=== PATIENT | female | born 1955 | race Caucasian/White ===

== ENCOUNTER → 2016-10-16 | Outpatient (CLI) | payer BC ==
[~2016-10-16] MED LIST: ARIP2TAB8 PO; ASC500 PO; ASPI-781 PO; ATEN-51; CALC-143 PO; CRAN300T PO; DULO20CA43; DULO30CA45 PO; DULO60CA6 PO; IBUP200C PO; POTA2TAB14 PO
--- NOTE | 2016-10-16 22:52 | HKNOTE ---
DATE OF SERVICE: 10/16/2016 The patient comes in for preoperative evaluation, scheduled to have a right total knee replacement o n 10/17/2016. She has been cleared for surgery by Dr. López. She has not given any blood for autotransfusion. She understands the risks associated with using hospital blood. She is agreeable to using hospital blood if needed. Numerous questions were asked and answered. The patient has pr eviously undergone a left knee replacement, had no postoperative complications or problems, and she is fully aware of what is involved with this operation. Dictated By: CORTEZ PINA/NTS Conf#: [id number] DID#: [id number]
== END | disposition home or self-care (01) ==
LOC: HKI 14:20 → MERGE 14:30
DX: Z01.818 Encounter for other preprocedural examination (principal); M25.561 Pain in right knee
CPT/HCPCS: G0463

== ENCOUNTER 2016-10-17 05:55 | Inpatient (IN) | payer BC ==
--- NOTE | 2016-10-14 14:16 | PREOPHP ---
DATE OF ADMISSION: 10/17/2016 The patient to have surgery with Dr. Kojo Garner on 10/17/2016. REASON FOR CONSULTATION: Consultation requested by Dr. Kojo Garner for medical evaluation an d clearance of a 61-year-old woman about to undergo surgery on her right knee. Thank you, Dr. Garner, for allowing us to participate in the care of this patient. HISTORY OF PRESENT ILLNESS: Molly Cummins, a 61-year-old woman, who had prior surgery on her left kne e, currently being admitted for a total knee replacement on the right side. She had a knee replacem ent done on the left side approximately a year or so ago and other than that had had arthroscopic shelby rgery on the left knee and Lasik surgery but other than that has had no major surgeries. PAST MEDICAL HISTORY: She broke her right and left wrist, had Lasik surgery, has had no medical hos pitalizations and has been basically healthy. MEDICATIONS: She currently takes the following medications: 1. Cymbalta 90 mg a day. 2. Atenolol 25 mg a day. 3. Abilify 2 mg a day. ALLERGIES: SHE IS NOT ALLERGIC TO ANY MEDICATIONS. SOCIAL HISTORY: The patient is , has no children. She does not smoke. Alcohol socially. D oes drink tea. Usually has no difficulty sleeping at night. FAMILY HISTORY: Unobtainable, as she is adopted and she knows nothing of her biological family hist ory. REVIEW OF SYSTEMS HEENT: Periodic headaches. CARDIORESPIRATORY: Denies any chest pain or shortness of breath. GASTROINTESTINAL: No melena or hematemesis. GENITOURINARY: No urgency, frequency. GYNECOLOGIC: Postmenopause. Up to date with her development technician. MUSCULOSKELETAL: Positive for right knee pain. NEUROPSYCHIATRIC: Unremarkable. GENERAL HEALTH: As above. PHYSICAL EXAMINATION: VITAL SIGNS: The patient's blood pressure was 112/70, pulse was 80 and regular, respirations were 1 8, temperature 98.2, height 65 inches, weight 170 pounds. GENERAL: The patient was noted to be a well-developed, well-nourished female, alert and cooperative , in no apparent acute distress, oriented to time, place, and person. HEAD, EARS, EYES, NOSE AND THROAT: Head was atraumatic. Eyes: Pupils were equal, reactive to ligh t and accommodation. Fundi were benign. Tympanic membranes were unremarkable. Nose was negative. Mouth was unremarkable. Fair oral hygiene was present. NECK: Supple without any rigidity. Trachea was midline. Thyroid was unremarkable. Neck veins wer e flat. Carotid pulses were equal. No bruits were heard. BACK: Unremarkable. CHEST: Symmetrical. BREASTS AND AXILLARY: Did not reveal any masses. LUNGS: Clear to percussion and auscultation. HEART: PMI is fifth intercostal space at the midclavicular line. Regular sinus rhythm was noted. No significant murmurs, rubs, or gallops being elicited. ABDOMEN: Soft, good bowel sounds were noted. No significant organomegaly, masses, or tenderness. GENITALIA: Normal female external genitalia. PELVIC/RECTAL: Per her development technician. EXTREMITIES: Not revealing clubbing, edema or cyanosis. Scar from prior surgery was noted on the l eft knee. Peripheral pulses were physiologic. SKIN: Moist and warm without any eruptions. No gross lymphadenopathy was noted. NEUROLOGIC: Grossly intact. LABORATORIES: Review of laboratory and other data revealed the following: The patient's chemistry panel including electrolytes, glucose, BUN, creatinine and liver function test, magnesium, iron, th yroid function tests, hemoglobin A1c, CBC, sed rate, UA, PT and PTT were within normal limits. IMAGING: The patient's chest x-ray was normal as well as was her EKG. IMPRESSION: 1. Degenerative joint disease, right knee, status post total knee replacement on the left. 2. Hypertension. 3. Menopausal syndrome. 4. Stable health. DISCUSSION: Dr. Garner, I see no contraindications to the patient undergoing current proposed s urgery under desired form of anesthesia and we will follow her along with you during her stay at [facility]. Thank you again, Dr. Garner, for allowing us to participate in care of this patient. Dictated By: TEENA COATES/LAURA Conf#: [id number] DID#: [id number]
[2016-10-16 17:25] VITALS: BMI 28.3
[2016-10-17] VITALS (18 sets, daily range): BP systolic 99–141; BP diastolic 56–78; PULSE 68–116; RESP 15–28; Ht 165.1 cm; Wt 77.1 kg
[~2016-10-17] VITALS: Ht 165.1 cm; Wt 77.1 kg
[2016-10-17] MEDS: KNEE PAIN COCKTAIL VANCO INJ SCH ×12 (05:00→08:36)
[~2016-10-17 05:55] MED LIST changes: -ASPI-781 PO; -IBUP200C PO; -POTA2TAB14 PO
[2016-10-17] MEDS ORDERED: TRANEXAMIC ACID IVPB ONE (06:00)
[2016-10-17] MEDS ORDERED: DEXAMETHASONE 4 MG/ML 1 ML INJ IV ONE (06:00)
[2016-10-17] MEDS ORDERED: SOD CHLORIDE 0.9% IVPB ONE (06:00)
[2016-10-17] MEDS ORDERED: VANCOMYCIN 1 GM (PMX) 250 ML IVPB ONE (06:00)
[2016-10-17] MEDS ORDERED: CELECOXIB 200 MG CAP PO ONE (06:00)
[2016-10-17] MEDS ORDERED: ONDANSETRON 4 MG INJ IV ONE (06:00)
[2016-10-17] MEDS ORDERED: LACTATED RINGER'S 1,000 ML IV* SCH (06:00)
[2016-10-17] MEDS ORDERED: oxyCODONE (CR) 10 MG TAB [oxyCONTIN] PO ONE (06:00)
[2016-10-17] MEDS ORDERED: ACETAMINOPHEN 1000MG/100ML IV 100 ML IVPB ONE (06:00)
[2016-10-17] MEDS ORDERED: LANSOPRAZOLE 30 MG CAP PO ONE (06:00)
[2016-10-17] MEDS ORDERED: TOBRAMYCIN 1.2 GM POWDER ONE (06:44)
[2016-10-17] MEDS ORDERED: POLYMYXIN B 500000 UNIT INJ ONE (06:44)
[2016-10-17] MEDS ORDERED: BUPIVACAINE 0.5%/EPI (SDV) 30 ML INJ ONE (06:44)
[2016-10-17] MEDS ORDERED: ROPIVACAINE 0.2% 100 ML ONE (06:44)
[2016-10-17] MEDS ORDERED: VANCOMYCIN 1 GM INJ ONE (06:44)
[2016-10-17] MEDS ORDERED: BUPIVACAINE 0.25%/EPI (SDV) 30 ML INJ ONE ×2 (06:44→08:17)
[2016-10-17] MEDS ORDERED: LIDOCAINE 2% (SDV) 5 ML INJ ONE (06:57)
[2016-10-17] MEDS ORDERED: MIDAZOLAM 1 MG/ML 2 ML INJ ONE (06:57)
[2016-10-17] MEDS ORDERED: PROPOFOL 20 ML ONE (06:57)
[2016-10-17] MEDS ORDERED: METHYLENE BLUE 1% 10 ML INJ ONE (06:59)
[2016-10-17] MEDS ORDERED: TRANEXAMIC ACID IRR SCH ×2 (07:00)
[2016-10-17] MEDS ORDERED: SOD CHLORIDE 0.9% IRR SCH ×2 (07:00)
--- NOTE | 2016-10-17 07:34 | HPN ---
Date/Time of Note Date/Time of Note DATE: 10/17/16 TIME: 07:33 Interval H&P Admission Note Pt. seen H&P reviewed: No system changes SHELLI BORJAS PA-C Oct 17, 2016 07:33
[2016-10-17] MEDS ORDERED: hydrALAzine 20 MG INJ ONE (08:11)
[2016-10-17] MEDS ORDERED: FENTAnyl 50 MCG/ML VIAL IV PRN ×2 (11:00)
[2016-10-17] MEDS ORDERED: LABETALOL HCL 20MG INJ IV PRN (11:00)
[2016-10-17] MEDS ORDERED: METOCLOPRAMIDE 10 MG INJ IV PRN (11:00)
[2016-10-17] MEDS ORDERED: MEPERIDINE 25 MG INJ IV PRN (11:00)
[2016-10-17] MEDS ORDERED: DIPHENHYDRAMINE 50 MG INJ IV PRN (11:00)
[2016-10-17] MEDS ORDERED: MIDAZOLAM 1 MG/ML 2 ML INJ IV PRN (11:00)
[2016-10-17] MEDS ORDERED: ONDANSETRON 4 MG INJ IV PRN (11:00)
[2016-10-17] MEDS ORDERED: EPHEDrine SULFATE 50 MG/5 ML SYG IV PRN (11:00)
[2016-10-17] MEDS ORDERED: hydrALAzine 20 MG INJ IV PRN (11:00)
[2016-10-17] MEDS ORDERED: HYDROmorphONE (0.2 MG/ML) 10ML SYG IV PRN ×2 (11:00)
[2016-10-17] MEDS ORDERED: morphine (1 MG/ML) 10ML SYRINGE IV PRN ×2 (11:00)
[2016-10-17] MEDS ORDERED: DOCUSATE SODIUM 100 MG CAP PO ONE (11:30)
[2016-10-17] MEDS ORDERED: HYDROmorphONE 0.2 MG/ML PCA IV PRN (11:30)
[2016-10-17] MEDS ORDERED: BETHANECHOL 25 MG TAB PO PRN (11:30)
[2016-10-17] MEDS ORDERED: ASPIRIN (EC) 325 MG TAB PO ONE (11:30)
[2016-10-17] MEDS ORDERED: BISACODYL 10 MG SUPP PR PRN (11:30)
[2016-10-17] MEDS ORDERED: MAGNESIUM HYDROXIDE 30ML CUP PO PRN (11:30)
[2016-10-17] MEDS ORDERED: SENNA/DOCUSATE NA (8.6MG/50MG) TAB PO PRN (11:30)
[2016-10-17] MEDS ORDERED: MEPERIDINE 10 MG/ML 30 ML PCA IV PRN (11:30)
[2016-10-17] MEDS ORDERED: NALOXONE (0.4 MG/ML) INJ IV PRN (11:30)
[2016-10-17] MEDS ORDERED: COUMADIN NOTE XX SCH (11:30)
[2016-10-17] MEDS ORDERED: NA PHOSPHATE/BIPHOS 133 ML ENEMA PR PRN (11:30)
[2016-10-17] MEDS: ACETAMINOPHEN 1000MG/100ML IV 100 ML IVPB SCH ×2 (11:38→20:08)
[2016-10-17] MEDS: ONDANSETRON 4 MG INJ IV SCH ×3 (11:39→23:40)
[2016-10-17] MEDS: CEFAZOLIN 1 GM/50 ML (PMX) 50 ML IVPB SCH ×2 (11:42→20:37)
--- NOTE | 2016-10-17 11:49 | RADRPT ---
PROCEDURE: XR right knee. CLINICAL INDICATION: Knee pain. TECHNIQUE: AP and lateral views are available for review. COMPARISON: No comparison available FINDINGS: There is a postoperative constrained total knee replacement. There is no evidence of loosening of th e prosthesis. There is no evidence of hardware failure. The osseous structures are normal in mineral ization, architecture and alignment No acute fracture or dislocation is seen.No osseous lesions are identified. There are postoperative soft tissue changes. [address] . IMPRESSION: Unremarkable postoperative constrained total knee replacement. Postoperative soft tissue changes RPTAT: HGDB .Bony Cardona MD, Date Time Electronically viewed and signed by .Bony Cardona MD, MD on 10/17/2016 11:48 .B/
--- NOTE | 2016-10-17 12:36 | OPR ---
DATE OF OPERATION: 10/17/2016 SURGEON: Kojo Garner MD FIELD INVESTIGATOR: JON Su ANESTHESIOLOGIST: Dr. Massey PREOPERATIVE DIAGNOSIS: Exceedingly severe degenerative osteoarthritis of the right knee. POSTOPERATIVE DIAGNOSIS: Exceedingly severe degenerative osteoarthritis of the right knee. OPERATION PERFORMED: Total knee replacement (arthroplasty of the knee, condylar plateau medial and lateral compartments with patella resurfacing, CPT 74379). JUSTIFICATION FOR SURGERY: The knee was found to have end-stage osteoarthritis. The patient is a v sagar active 61-year-old whose lifestyle is markedly affected by the arthritic knee. The patient has previously undergone a left total knee replacement. She is extremely delighted with the results of this surgery, but she is still not able to get around well because of the continuing symptoms in the right knee. An extensive course of conservative care has been tried prior to embarking on the knee replacement operation. There can be no reasonable expectation that any further conservative treatm ent will make any improvement to this patient's pain level and lifestyle. The risks and complicatio ns of the surgery were discussed with the patient at the preoperative visit as well as the risks and possible complications of blood transfusion using [facility] blood. The patient is agreeable to [facility] blood if needed. DESCRIPTION OF PROCEDURE: The patient was given intravenous antibiotics 1 hour prior to surgery. A n epidural anesthetic was initiated in the ICU holding area. The patient was taken to the operating room and given a light general anesthetic. The leg, foot, and ankle were prepared and draped in th e usual sterile fashion. The center of the ankle was marked at the midpoint between the 2 malleoli with a sterile marking pen. A tourniquet around the thigh was inflated to ____ mmHg after the leg h ad been exsanguinated using an Esmarch bandage. The tourniquet was inflated at the initiation of pr ocedure for a short period and was then again reinflated at the time of cementing the components par ts. The total tourniquet time was ____ minutes. A longitudinal incision was made over the anterior aspect of the knee. The incision extended from t he tibial tubercle to a point just above the patella. The medial capsule was exposed by sharp and b satinder dissection, and was incised 1/4 inch medial to the patella. A marking stitch was set on each s shilpi of the incision at the midpoint of the capsule so as to enable accurate reapproximation at the e nd of the operation. A vastus split was made in the vastus medialis extending from the superior lamont e of the patella for approximately 5 cm between the line with the muscle fibers. The ends of the mu scle split at the patella were marked with a marking stitch on each side for later accurate reapprox imation. The patella was reflected laterally and osteophytes around the rim of the patella were rem chiara. Osteophytes along the lateral femoral condyle were removed so as to facilitate lateral reflec tion of the patella. Posteromedial osteophytes were removed on the lateral side as well, so as to f ree up the lateral collateral ligament. Medial femoral osteophytes and posteromedial femoral osteop hytes were also removed at this time. This allowed for the knee to be brought into a more normal al ignment. A segment of bone was cut from the articular surface of the patella using a caliper to det ermine the exact thickness to be removed. The actual patella was extremely thin, measuring 20.5 mm at its widest point on the patellar ridge. I usually like to leave 15 mm of bone on the remaining p atella. We did not use a jig to remove the patellar surface, because it was so thin. Instead, free hand measurement was used by removing small amounts of bone until we were satisfied that we had a s ufficient bed for the patella implant. The remaining thickness of the patella was 13.5 mm. The kne e was flexed, and the patella was displaced laterally without eversion. Osteophytes in the femoral notch were removed. The remnants of the medial and lateral menisci were excised and the cruciate li gaments were excised. The medial collateral ligament was elevated as an osteo-periosteal flap from the proximal tibia. The distal end of the medial collateral ligament remained attached to the tibia throughout the operation. The tibia was retracted forward with Hohmann retractor, inserted posteri or to the midpoint of the proximal tibia. The tibial jig was set in place in such a way as to align longitudinally with the anterior tibial spine, with the junction of the middle and medial 2/3 of th e patella tendon, and with the posterior intercondylar eminence of the tibia. An AP and lateral x-r ay was obtained with the alignment jig in place. This showed that the alignment was satisfactory af ter some slight adjustments were made. The posterior slope of the tibia was set at 6 degrees. The tibial cutting block was attached to the proximal tibia with 2 Steinmann pins. An external alignmen t danielle was placed on the cutting block to confirm the alignment of the cutting block. An Edmundo Wing feeler gauge was now placed on the superior aspect of the cutting block to further confirm the poste rior slope of the tibia and the depth of the cut to be made. An oscillating saw was used to remove an appropriate amount of bone from the proximal tibia with the healthy side being used to measure th e cutting depth. The lateral femoral condyle of the distal femur was measured to determine the appr opriate size for the femoral component. The anterior condyle of the femur was partially removed wit h a rongeur. A medium-sized cutting block was attached to the distal femur with 2 Steinmann pins th rough the pin holes in the block. The external alignment jig of this cutting block was lined up wit h the anterior surface of the femur and a central intercondylar hole for the intramedullary danielle was drilled through the hole in the alignment block. The block was removed. A long Waterpik nozzle was used to flush fat from the intramedullary canal. The appropriately sized cutting block was now att ached to the femur by means of an intramedullary danielle. The linking guide was inserted into the slot in the base of the femoral cutting block with the knee set at 90 degrees of flexion and with the maria dolores jayda guide set flush with the proximal tibial cut in order to set the appropriate rotational alignme nt on the femoral cutting block. Ligament balance was checked at this point and was found to be swetha y satisfactory. Once the rotational alignment had been determined, and the ligaments found to be ba lanced, the femoral cutting block was secured to the distal femur with 2 Steinmann pins. The anteri or and posterior cuts of the distal femur were made off the femoral cutting block. The cutting bloc k was removed and a spacer block was used to measure the flexion gap which was found to be 10 mm. The same spacer block size without the femoral element was used with the leg in extension to determi ne the amount of distal femur to be removed in the transverse plane. A 5-degree distal cutting bloc k was now set on the femoral intramedullary daneille, and the danielle was inserted into the intramedullary ca nal. The appropriate amount of bone to be removed was determined. The femoral cutting block was pi nned to the anterior surface of the femur with 2 Steinmann pins. The appropriate amount of bone was resected off the distal femur to give an extension gap equal to the thickness of the flexion gap. The cut needed to be repeated after initial cut in order to produce an extension gap the same size a s the flexion gap. By using the appropriate cutting blocks, the rest of the femoral cuts were made. The femoral trial component was installed and was found to fit perfectly. The femoral trial component was removed. T he proximal tibia was sized, and the appropriate tibial tray selected. The central fixation hole in the tibia was made using the tibial tray template and the appropriate instruments. The femoral and tibial trials and the trial tibial insert were installed, and the patella was prepared to accept th e 32-sized patella dome component, which was the smallest available, but adequately covered the adams lla. The trial components were all removed. The tourniquet was inflated. Soft tissues around the knee, especially the posterior capsule, were injected with a mixture of Naropin, Toradol, morphine, and clonidine. The cut surfaces of the bones were cleaned with pulsatile Water Jet lavage and thoro ughly dried. Sclerotic bone surfaces were drilled with a 1/8-inch drill. The tibial trial componen t was installed with methyl methacrylate cement followed by the femoral component and finally the pa tellar component. Cement was used on all 3 components. The cement was finger packed into the cut s urfaces of the bone and pressurized with a rubber dam in order to get good interdigitation of the ce ment into the bone. A lateral x-ray of the knee was obtained while the cement was hardening with th e anticipated appropriate spacer trial in place. Once the cement was hard, all extraneous cement wa s removed. The cut edges of the medial capsule were held together at the midpoint with a towel clip , and the knee was put through a full range of motion. The patella was found to track satisfactoril y. A lateral release was obtained with the anticipated ____ obtained with a 10 mm spacer trial in p lace. Note that the patient had a fixed ____ deformity of 8 degrees before the knee was prepped and draped. At this point, the patella was found to track very well in the patellar groove of the femo ral component. A lateral release was not required. The knee was frequently irrigated with normal saline containing antibiotics with pulsatile lavage th roughout the entire operation as a prophylactic measure against infection. Once the cement was hard , the tourniquet was released. Bleeding points were cauterized. The total tourniquet time was ___. Note that the tourniquet was intermittently released throughout the operation. The patient's rena l signs remained stable throughout the operation. The permanent rotating bearing was installed. Superficial and deep Hemovac drains were set in place . The wound was closed using interrupted Vicryl on the capsule with FiberWire used at strategic poi nts such as the attachment of the distal ends of the vastus medialis at the split, and the tibial te ndon was also attached to the osteo-periosteal flap with FiberWire. The rest of the medial capsule was closed with interrupted Vicryl. A subcuticular stitch was inserted and angelo were used on the skin. The usual sterile dressings were applied. A Marcus-Fuentes compression dressing was applied a fter a sterile cooling pad had been set in place against the deep tissues by sterile cast padding. The patient's condition at the end of the procedure was satisfactory. Vital signs remained stable t hroughout the operation. The patient returned to the recovery room in stable condition. X-rays wer e obtained in the recovery room. Calf pumps were applied to both legs in the operating room. There were no problems or complications as far as we know. The sponge and instrument counts were correct . COMPONENT INFORMATION: KNEE IMPLANT TYPE: LCS. FEMORAL COMPONENT SIZE: Standard. TIBIAL COMPONENT SIZE: 1.5 PATELLAR COMPONENT SIZE: ____ TIBIAL INSERT: 10 mm deep dish posterior stabilized. 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 TOTAL TOURNIQUET TIME: ____ TOTAL BLOOD LOSS: Approximately 200 to 250 mmHg. Note that there was fairly extensive bleeding throughout the operation, even with the tourniquet fransisco vated. We progressively increased the tourniquet from 225 mm to 300 mm to see if we could decrease the bleeding and when we could not, we assumed that there might be a venous tourniquet and so we fin ally released the tourniquet completely and worked without a tourniquet most of the time except for when cementing the implant components. As a result, there was more bleeding than usual during the o peration. Dictated By: KOJO PINA/LAURA Conf#: [id number] DID#: [id number]
--- NOTE | 2016-10-17 13:34 | RADRPT ---
PROCEDURE: Intraoperative imaging of the right knee with fluoroscopy. CLINICAL INDICATION: Right knee pain. Intraoperative. TECHNIQUE: 2 images of the right knee were obtained in the operating room with an image intensifie r. No radiologist was in attendance. 11.2 seconds of fluoroscopy time was used. COMPARISON: No prior study is available for comparison. FINDINGS: Images demonstrate components of the knee arthroplasty. IMPRESSION: 1. Intraoperative imaging of the right knee. RPTAT: QQ .Steve Montana MD, MD Date Time Electronically viewed and signed by .Steve Montana MD, MD on 10/17/2016 13:33 .R/
--- NOTE | 2016-10-17 13:37 | RADRPT ---
PROCEDURE: Right knee radiograph. CLINICAL INDICATION: Right knee pain. Intraoperative. TECHNIQUE: Single lateral intraoperative image. COMPARISON: Prior study done earlier the same day. FINDINGS: There are components of a total right knee arthroplasty. IMPRESSION: 1. Satisfactory intraoperative imaging of the right knee. RPTAT: QQ .Steve Montana MD, Date Time Electronically viewed and signed by .Steve Montana MD, on 10/17/2016 13:37 .R/
--- NOTE | 2016-10-17 13:39 | CONS ---
DATE OF ADMISSION: 10/17/2016 DATE OF CONSULTATION: 10/17/2016 POSTOPERATIVE CONSULTATION FOLLOWUP The patient had surgery with Dr. Kojo Garner on 10/17/2016. HISTORY OF PRESENT ILLNESS: The patient was seen in the recovery room, quite alert, responding to q uestions, doing quite nicely. No particular complaints. PHYSICAL EXAMINATION: VITAL SIGNS: The patient was afebrile earlier. Pulse was 96, respirations 20, blood pressure 123/70 , O2 98% on nasal cannula. HEENT: Unremarkable. LUNGS: Clear. HEART: Revealed a regular exam. Rest of the exam was unremarkable. IMPRESSION: 1. Status post total knee replacement on the right side. 2. Hypertension. 3. Stable health. DISCUSSION: Plan is to continue the patient's preoperative medicine, follow her along with you from a medical standpoint. CONDITION: Postoperatively in the recovery room is stable. Thank you again, Dr. Garner, for allowing us to participate in the care of this patient. Dictated By: TEENA COATES/LAURA Conf#: [id number] DID#: [id number]
[2016-10-17] MEDS ORDERED: [UNRECOGNIZED DRUG - REMARK] XX SCH (14:00)
[2016-10-17] MEDS ORDERED: TRANEXAMIC ACID 770 MG in SOD CHLORIDE 0.9% 100 ML IVPB ONE ×2 (15:00→18:00)
[2016-10-17] MEDS: DEXTROSE 5%-LR 1,000 ML IV SCH ×2 (15:02→23:31)
[2016-10-17] MEDS ORDERED: ZOLPIDEM 5 MG TAB PO PRN (16:00)
[2016-10-17] MEDS ORDERED: DIPHENHYDRAMINE 50 MG INJ IM PRN (16:00)
[2016-10-17] MEDS ORDERED: DULOXETINE 30 MG CAP DR PO SCH (19:00)
[2016-10-18] MEDS: ACETAMINOPHEN 1000MG/100ML IV 100 ML IVPB SCH ×3 (04:08→20:10)
[2016-10-18] MEDS: CEFAZOLIN 1 GM/50 ML (PMX) 50 ML IVPB SCH (04:46)
[2016-10-18 04:54] LABS: ADD SCAN DIFF NO
[2016-10-18 05:02] LABS: BASOPHILS % 0.2 % (0.0-2.0); HEMATOCRIT 35.5 % (37.0-47.0); HEMOGLOBIN 11.4 g/dl (12.0-16.0); LYMPHOCYTES # 1.8 10^3/ul (0.8-2.9); LYMPHOCYTES % 9.9 % (15.0-51.0); MEAN CORPUSCULAR HEMOGLOBIN 28.1 pg (29.0-33.0); MEAN CORPUSCULAR HGB CONC 32.1 g/dl (32.0-37.0); MEAN CORPUSCULAR VOLUME 87.4 fl (82.0-101.0); MEAN PLATELET VOLUME 10.5 fl (7.4-10.4); MONOCYTE # 1.2 10^3/ul (0.3-0.9); MONOCYTES % 6.9 % (0.0-11.0); NEUTROPHIL # 14.6 10^3/ul (1.6-7.5); NEUTROPHILS % 82.3 % (39.0-77.0); PLATELET COUNT 252 10^3/UL (140-415); RED BLOOD COUNT 4.06 10^6/ul (4.20-5.40); RED CELL DISTRIBUTION WIDTH 14.7 % (11.5-14.5); WHITE BLOOD COUNT 17.7 10^3/ul (4.8-10.8)
[2016-10-18] MEDS ORDERED: KETOROLAC 15 MG INJ INJ PRN (06:00)
[2016-10-18] MEDS ORDERED: BUPIVACAINE 0.25%/EPI (SDV) 30 ML INJ INJ PRN (06:00)
[2016-10-18] MEDS: ONDANSETRON 4 MG INJ IV SCH (06:06)
[2016-10-18] MEDS: DEXAMETHASONE 4 MG/ML 1 ML INJ IV SCH (06:29)
[2016-10-18 07:22] VITALS: BP 112/58; RESP 20
--- NOTE | 2016-10-18 08:09 | PN ---
Date/Time of Note Date/Time of Note DATE: 10/18/16 TIME: 08:05 Assessment/Plan VTE Prophylaxis VTE Prophylaxis Intervention: ambulation, anti-embolic stocking, SCD's, other ( Aspirin 325 mg twice daily) Lines/Catheters IV Catheter Type (from Nrs): Peripheral IV Garcia in Place (from Nrs): Yes Assessment/Plan Assessment/Plan -Hemovac Removed Today. 280 cc output. -Pain Cocktail Given -Pain Meds as needed -Dress change performed today -OOB with PT -ASA/SCDs for DVT Prophylaxis -White blood cell count at 17.7. Vanco ordered. Wound site is clean dry and intact no signs of infection. Normal temperature 97.6. -Continue monitoring with Internal Medicine -Patient Stable Subjective 24 Hr Interval Summary 61-year-old female postop day 1 status post right total knee arthroplasty. Denies any pain complaints. Patient had physical therapy on the day of surgery. Was able to walk down the hallway and back without any complications. Denies any chest pain/tightness, shortness of breath or calf pain. Patient doing well with no complaints. Constitutional: no complaints Pain Control: well controlled Exam/Review of Systems Vital Signs Vitals Vital Signs Date Time Temp Pulse Resp B/P Pulse Ox O2 Delivery O2 Flow Rate FiO2 10/17/16 20:00 97.6 102 18 100/62 95 10/17/16 12:30 Nasal Cannula 10/17/16 11:59 2.0 Intake and Output 10/17/16 10/17/16 10/18/16 15:00 23:00 07:00 Intake Total 2420 ml 1217.7 ml 1950 ml Output Total 1530 ml 1600 ml 1800 ml Balance 890 ml -382.3 ml 150 ml Exam Free Text/Dictation -Hemovac: Intact. 280 cc output. -Pain Cocktail Drains: Intact -Incision: Clean, Dry and Intact without any redness or drainage -5/5 Tibialis Anterior, EHL Gastrocnemius/Soleus and Peroneals -Normal Sensation -Palpable DP/PT, Capillary Refill <2 secs -No Distal Edema -Negative Padmini Sign/No calf pain -Toes Freely Movable Constitutional: alert, oriented, well developed Results Result Diagram: 10/18/16 0435 SHELLI BORJAS PA-C Oct 18, 2016 08:09
--- NOTE | 2016-10-18 08:11 | PDOCDIS ---
Discharge Instructions DIAGNOSIS Discharge Diagnosis: Status post right total knee arthroplasty. CONDITION Patient Condition: Stable HOME CARE INSTRUCTIONS: Diet Instructions: Regular ACTIVITY: Activity Restrictions: Slowly Increase Activity Rest between Activity Avoid heavy lifting No Sexual Activity Do not Drive (For 6 weeks) Do not operate Machinery Do not operate Power Tool Avoid Heavy Housework Weight Bearing (As tolerated. May use front wheeled walker if needed. Gradually progress to independent ambulation once comfortable.) Bathing Restrictions: Shower (Using Tegaderm provided on discharge. Apply prior to showering. May remove after showering. Repeat each day until angelo are removed around 10 days.) FOLLOW UP/APPOINTMENTS Appointments 11/07/2016. Continue DVT prophylaxis. SHELLI BORJAS PA-C Oct 18, 2016 08:11
[2016-10-18 08:17] VITALS: BP 139/61; RESP 20
[2016-10-18 08:25] LABS: ADD UMIC YES; URINE BILIRUBIN (Dip) NEGATIVE (NEGATIVE); URINE BLOOD (Dip) TRACE (NEGATIVE); URINE COLOR LT. YELLOW (YELLOW); URINE KETONES (Dip) NEGATIVE (NEGATIVE); URINE LEUKOCYTE ESTERASE (Dip) NEGATIVE (NEGATIVE); URINE NITRITE (Dip) NEGATIVE (NEGATIVE); URINE TOTAL PROTEIN (Dip) NEGATIVE (NEGATIVE); URINE UROBILINOGEN (Dip) 0.2 E.U./dL (0.1-1.0)
[2016-10-18] MEDS ORDERED: VANCOMYCIN IV PER PHARMACY XX SCH (08:30)
[2016-10-18] MEDS: FERROUS FUMARATE (SR) TAB PO SCH ×2 (08:53→20:10)
[2016-10-18] MEDS: ASCORBIC ACID 500 MG TAB PO SCH (08:53)
[2016-10-18] MEDS: DOCUSATE SODIUM 100 MG CAP PO SCH ×2 (08:53→20:10)
[2016-10-18] MEDS: ASPIRIN (EC) 325 MG TAB PO SCH ×2 (08:53→20:10)
[2016-10-18] MEDS: ATENOLOL 25 MG TAB PO SCH (08:54)
[2016-10-18] MEDS: CELECOXIB 200 MG CAP PO SCH ×2 (08:54→20:10)
[2016-10-18] MEDS: CALCIUM/VITAMIN D (500/200) TAB PO SCH (08:54)
[2016-10-18] MEDS: DULOXETINE 30 MG CAP DR PO SCH (09:00)
[2016-10-18] MEDS ORDERED: oxyCODONE 5 MG TAB PO PRN ×3 (09:00)
[2016-10-18] MEDS: ARIPIPRAZOLE 2 MG TAB PO SCH (09:00)
[2016-10-18] MEDS ORDERED: PATIENT'S OWN MEDICATION PO SCH ×2 (09:00)
[2016-10-18] MEDS ORDERED: DULOXETINE 30 MG CAP DR PO SCH (09:00)
[2016-10-18] MEDS ORDERED: CRANBERRY EXTRACT PO SCH (09:00)
[2016-10-18 09:03] LABS: BACTERIA,URINE RARE; URINE RBCS 0-2 /HPF (0)
[2016-10-18] MEDS ORDERED: VANCOMYCIN 1.5 GM in SOD CHLORIDE 0.9% 250 ML IVPB SCH (10:00)
[2016-10-18] MEDS ORDERED: PATIENT'S OWN MEDICATION PO ONE ×2 (10:00)
--- NOTE | 2016-10-18 10:46 | CONS ---
DATE OF ADMISSION: 10/17/2016 DATE OF CONSULTATION: 10/18/2016 POSTOPERATIVE CONSULT FOLLOWUP SUBJECTIVE: The patient is quite alert, sitting up in bed, feeling well without any specific compla ints. OBJECTIVE: VITAL SIGNS: Blood pressure 139/61, pulse 91 and regular, respirations 20, temperature 97.7, O2 sat uration 95% on room air. HEENT: Unremarkable. LUNGS: Clear. HEART: Reveals a regular rhythm. IMPRESSION: 1. Status post total knee replacement on the right. 2. Hypertension. 3. Stable health. DISCUSSION: Review of laboratory and other data revealed the following: The patient's CBC reveals A white count of 17.7 compatible with steroid use. No other laboratories available at this particul ar point in time. Plan is to continue following the patient. Her preop medicines were ordered. The patient chooses t o take some of her own medications because they are not generic, it has been approved. Management per Dr. Garner. Thank you again, Dr. Garner, for allowing us to participate in the care of your patient. Dictated By: TEENA COATES/LAURA Conf#: [id number] DID#: [id number]
[2016-10-18] MEDS: DEXTROSE 5%-LR 1,000 ML IV SCH (12:13)
[2016-10-18 19:00] VITALS: BP 131/69; RESP 18
[2016-10-18] MEDS: VANCOMYCIN 750 MG in SOD CHLORIDE 0.9% 150 ML IVPB SCH (22:15)
[2016-10-19] MEDS: DEXTROSE 5%-LR 1,000 ML IV SCH ×2 (00:31→13:01)
[2016-10-19] MEDS: ACETAMINOPHEN 1000MG/100ML IV 100 ML IVPB SCH (04:30)
[2016-10-19 05:11] LABS: ADD SCAN DIFF NO
[2016-10-19 05:26] LABS: BASOPHIL # 0.1 10^3/ul (0.0-0.1); BASOPHILS % 0.9 % (0.0-2.0); EOSINOPHILS # 0.1 10^3/ul (0.0-0.5); EOSINOPHILS % 1.2 % (0.0-7.0); HEMATOCRIT 32.8 % (37.0-47.0); HEMOGLOBIN 10.7 g/dl (12.0-16.0); LYMPHOCYTES # 2.9 10^3/ul (0.8-2.9); MEAN CORPUSCULAR HEMOGLOBIN 28.5 pg (29.0-33.0); MEAN CORPUSCULAR HGB CONC 32.6 g/dl (32.0-37.0); MEAN CORPUSCULAR VOLUME 87.2 fl (82.0-101.0); MEAN PLATELET VOLUME 10.6 fl (7.4-10.4); MONOCYTE # 0.9 10^3/ul (0.3-0.9); MONOCYTES % 8.3 % (0.0-11.0); NEUTROPHIL # 7.1 10^3/ul (1.6-7.5); NEUTROPHILS % 63.1 % (39.0-77.0); PLATELET COUNT 253 10^3/UL (140-415); RED BLOOD COUNT 3.76 10^6/ul (4.20-5.40); RED CELL DISTRIBUTION WIDTH 14.7 % (11.5-14.5); WHITE BLOOD COUNT 11.2 10^3/ul (4.8-10.8)
[2016-10-19] MEDS: DEXAMETHASONE 4 MG/ML 1 ML INJ IV SCH (05:55)
[2016-10-19] MEDS ORDERED: PANTOPRAZOLE (EC) 40 MG TAB PO SCH (06:00)
[2016-10-19 07:57] VITALS: BP 123/69; RESP 16
[2016-10-19] MEDS: ARIPIPRAZOLE 2 MG TAB PO SCH (09:00)
[2016-10-19] MEDS: DULOXETINE 30 MG CAP DR PO SCH (09:00)
[2016-10-19] MEDS: ASPIRIN (EC) 325 MG TAB PO SCH (10:10)
[2016-10-19] MEDS: DOCUSATE SODIUM 100 MG CAP PO SCH (10:10)
[2016-10-19] MEDS: ASCORBIC ACID 500 MG TAB PO SCH (10:10)
[2016-10-19] MEDS: CELECOXIB 200 MG CAP PO SCH (10:10)
[2016-10-19] MEDS: CALCIUM/VITAMIN D (500/200) TAB PO SCH (10:10)
[2016-10-19] MEDS: FERROUS FUMARATE (SR) TAB PO SCH (10:11)
[2016-10-19] MEDS: ATENOLOL 25 MG TAB PO SCH (10:12)
[2016-10-19] MEDS: VANCOMYCIN 750 MG in SOD CHLORIDE 0.9% 150 ML IVPB SCH (10:14)
--- NOTE | 2016-10-19 10:38 | PN ---
Date/Time of Note Date/Time of Note DATE: 10/19/16 TIME: 10:36 Assessment/Plan Lines/Catheters IV Catheter Type (from Nrsg): Saline Lock Garcia in Place (from Nrsg): Yes Assessment/Plan Assessment/Plan POD #2, s/p right TKA -pain cocktail given -dressing changed -pain cocktail removed -OOB with PT -pain meds as needed -would like to go home today. -follow up with Dr. Garner in the office as planned Subjective 24 Hr Interval Summary No acute overnight events. Denies pain. Progressing with PT. Dressing changed today. VSS, afebrile despite elevated WBC. Wants to go home today. Exam/Review of Systems Vital Signs Vitals Vital Signs Date Time Temp Pulse Resp B/P Pulse Ox O2 Delivery O2 Flow Rate FiO2 10/19/16 07:57 98.0 75 16 123/69 99 10/17/16 12:30 Nasal Cannula 10/17/16 11:59 2.0 Intake and Output 10/18/16 10/18/16 10/19/16 15:00 23:00 07:00 Intake Total 350 ml 1580 ml 1050 ml Output Total 1000 ml 1100 ml Balance 350 ml 580 ml -50 ml Exam Free Text/Dictation Dressing dry Incision clean, dry, and intact mild ecchymosis with no signs of erythema or cellulitis 5/5 Quadriceps, Tibialis Anterior, EHL, Gastroc, Soleus, Peroneals Normal sensation Palpable DT/PT, CR <2 sec No distal edema Results Result Diagram: 10/19/16 0446 10/18/16 0435 DICKSON MONZON PA-C Oct 19, 2016 10:38
--- NOTE | 2016-10-21 08:06 | DS ---
Date/Time of Note Date/Time of Note DATE: 10/21/16 TIME: 08:01 Discharge Summary Admission/Discharge Info Admit Date/Time Oct 17, 2016 at 05:55 Discharge Date/Time Oct 19, 2016 at 14:10 Final Diagnosis s/p Right TKA Patient Condition: Stable Hospital Course On the day of admission, the patient underwent right total knee arthroplasty Intraoperative complications: None Postoperative complications: None The patient was given prophylactic antibiotics and anticoagulants. On the day of surgery and first postoperative day patient was started on gait training and was taught usual restrictions following knee replacement Suction drain removed on the first postoperative day and the dressings were changed. The wound was found to be clean and healing well. There was no sign of infection. Pain cocktail given. Had elevated white blood cell count and therefore IV Vanco given for infection prophylaxis. On the second postoperative day, patient continued with inpatient PT. Dressings were changed. Wound was found to be clean and healing well. No signs of infection. Pain cocktail given. On the day of discharge, the wound was clean and healing well; there was no sign of infection. The dressings were changed. White blood cell count continued to trend downward. Discharge Temperature: 98 Discharge White Blood Cell Count: 11.2 Discharge Hemoglobin: 10.7 The patient was discharged home with home health. Arrangements were made for visiting nurses and home health/physical therapy. Tegaderm with pad also provided for patient. Instructions given on how to use to keep wound dry while showering. Patient may discontinue use of Tegaderm with pad after angelo have been removed around 10 days postoperatively. The patient will be seen in office at scheduled postoperative evaluation date given on their preoperative exam. Should patient complain of any problems prior to scheduled postoperative evaluation date, they may call into outpatient clinic to determine if they need to be scheduled at sooner appointment to be seen immediately if needed. Discharge medications: As per medication reconciliation form Diet: Same as preadmission diet. This is Shelli Pinzon PA-C dictating discharge summary for Dr. Kojo Garner. Home Meds Reported Medications Aripiprazole* (Abilify*) 2 Mg Tablet, 2 MG PO DAILY, #30 TAB 10/16/16 Duloxetine Hcl* (Cymbalta*) 60 Mg Capsule., 160 MG PO DAILY, CAP 10/16/16 Duloxetine Hcl* (Cymbalta*) 30 Mg Capsule., 30 MG PO DAILY, CAP 10/16/16 Cranberry Extract (Cranberry Concentrate) 300 Mg Tablet, 3600 MG PO DAILY, TAB 09/05/15 Calcium Citrate/Vitamin D (Citracal-Vitamin D 200 MG-250) 1 Each Tablet, 1 EACH PO DAILY, TAB 09/05/15 Ascorbic Acid (Vitamin C) 500 Mg Tab, 500 MG PO DAILY, TAB 09/05/15 Atenolol* (Atenolol*) 25 Mg Tablet, DAILY 09/05/15 Discontinued Reported Medications Duloxetine Hcl* (Cymbalta*) 20 Mg Capsule.dr, DAILY 09/05/15 Potassium Gluconate (Potassium Gluconate) 500 Mg Tablet, 500 MG PO DAILY, TAB 09/05/15 Ibuprofen* (Ibuprofen*) 200 Mg Capsule, 200 MG PO Q6, CAP 09/05/15 Discontinued Scripts Aspirin* (Ecotrin*) 325 Mg Tabec, 325 MG PO BID for 45 Days Prov:MARCIE HOANG 09/06/15 Follow-up Plan At scheduled postop visit 3 weeks status post surgery. SHELLI BORJAS PA-C Oct 21, 2016 08:06
== END 2016-10-19 14:10 | disposition home health service (06) | DRG 470 ==
LOC: REC 05:55 → MS1 12:30
PROC: 0SRC0J9 Replacement of Right Knee Joint with Synthetic Substitute, Cemented, Open Approach (ICD-10-PCS; principal; 2016-10-17 07:00)
DX: M17.11 Unilateral primary osteoarthritis, right knee (principal); I10 Essential (primary) hypertension; D72.829 Elevated white blood cell count, unspecified; N95.1 Menopausal and female climacteric states; Z96.652 Presence of left artificial knee joint
CPT/HCPCS: 73560; 81001; 81003; 82565; 85025; 86850; 86900; 86901; 86920; 87086; 97116; 97163; 97166; 97530; C1776; J0131; J0360; J0690; J0735; J1100; J1885; J2250; J2274; J2405; J2795; J3370; J7050; J7120; J7121

== ENCOUNTER → 2016-10-31 | Outpatient (CLI) | payer BC ==
[~2016-10-31] MED LIST changes: -DULO20CA43
--- NOTE | 2016-10-31 16:05 | PN ---
Date/Time of Note Date/Time of Note DATE: 10/31/16 TIME: 16:02 Outpatient Progress Note Chief Complaint 2 weeks postop right total knee arthroplasty. HPI 61-year-old female presents today for two-week postoperative appointment status post right total knee arthroplasty performed on 10/17/2016. Patient is very pleased status post surgery. Denies any pain complaints to the right knee. Patient states that after 2-3 days from discharge, she was no longer using any assisted ambulatory device. Continues to walk independently without discomfort. Denies any calf pain, chest pain/tightness, shortness of breath. [place] remain intact and presents today for staple removal as well. Review of Systems Const: No Fever, no chills, no Fatigue, normal appetite, no diaphoresis. Resp: No SOB, no wheezing, no chest pain. CV: No chest pain, no palpitaions, no BRADY. Physical Exam Height 5 foot 5 inches, weight 170 pounds Right knee: [place] are intact. Wound is clean dry and intact and well approximated. No tenderness to palpation to the right knee. Mild swelling on inspection. Patient able to fully extend the right knee actively with about 100 active flexion on exam today. No pain with range of motion. Negative Homans sign. 5/5 strength on resistance with flexion and extension. Normal sensory examination to light touch. Allergies Coded Allergies: No Known Drug Allergy (Verified Allergy, Unknown, 10/17/16) Assessment/Plan -Staple removal performed today. Steri-Strips applied after staple removal. -Wound healing well. No signs of infection. -Continue ASA 325 mg twice daily for DVT prophylaxis until 6 weeks status post surgery. -No signs of DVT. -Patient progressing well. -Follow-up at 6 week postop appointment. X-rays will be performed at 6 weeks postoperative appointment. -Patient made aware that they may follow-up sooner, should they experience any issues or complications as we will be glad to see them. -Order for outpatient physical therapy given today with focus on improved range of motion. Dr. Garner has also seen patient today and agrees with plan. Medications Home Meds Reported Medications Aripiprazole* (Abilify*) 2 Mg Tablet, 2 MG PO DAILY, #30 TAB 10/16/16 Duloxetine Hcl* (Cymbalta*) 60 Mg Capsule., 160 MG PO DAILY, CAP 10/16/16 Duloxetine Hcl* (Cymbalta*) 30 Mg Capsule.dr, 30 MG PO DAILY, CAP 10/16/16 Cranberry Extract (Cranberry Concentrate) 300 Mg Tablet, 3600 MG PO DAILY, TAB 09/05/15 Calcium Citrate/Vitamin D (Citracal-Vitamin D 200 MG-250) 1 Each Tablet, 1 EACH PO DAILY, TAB 09/05/15 Ascorbic Acid (Vitamin C) 500 Mg Tab, 500 MG PO DAILY, TAB 09/05/15 Atenolol* (Atenolol*) 25 Mg Tablet, DAILY 09/05/15 SHELLI BORJAS PA-C Oct 31, 2016 16:05
--- NOTE | 2016-11-06 09:33 | QN ---
Documentation Comment Patient called today requesting refill of [place] 10/325. was provided with #90 tablets on preop visit. She is 3 weeks post-op TKA and has run out of medications. Patient made aware that she may be using opiate medication at increased amount as she has finished 90 tab in 3 weeks. She was last seen on with no pain complaints. She is however, very responsible and there is no suspicion on non-compliant behavior. 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 SHELLI BORJAS PA-C Nov 06, 2016 09:33
== END | disposition home or self-care (01) ==
LOC: HKI 15:29
DX: Z47.1 Aftercare following joint replacement surgery (principal); Z96.651 Presence of right artificial knee joint

== ENCOUNTER → 2016-11-19 | Outpatient (CLI) | payer BC ==
--- NOTE | 2016-11-19 15:46 | PN ---
Date/Time of Note Date/Time of Note DATE: 11/19/16 TIME: 15:42 Outpatient Progress Note Chief Complaint Wound check 5 week postop right total knee replacement. HPI 61-year-old female presents today for wound check, specifically to the inferior region of the surgical wound to the right knee status post surgery. She is about 5 weeks postop. Denies any pain complaints. Patient is back to walking independently and normally. Denies any fever, chills or malaise. Denies any falls or injury status post surgery. Patient states that there is small region to the inferior wound that continues to heal and has noticed clear to white drainage of variable small amounts only when she is able to apply pressure to ooze fluid. She denies any redness surrounding the wound. Denies any other symptoms. Presents with today. Review of Systems Const: No Fever, no chills, no Wt. loss, no Fatigue, normal appetite, no diaphoresis. Eyes: No pain, no discharge, no redness, no visual change, no foreign body. ENT: No pain, no bleeding, no congestion, no sore throat, no dysphagia, no discharge or rhinitis. Const: No Fever, no chills, no Fatigue, normal appetite, no diaphoresis. Resp: No SOB, no wheezing, no chest pain. CV: No chest pain, no palpitaions, no BRADY. Physical Exam General Appearance: well-developed, well-nourished, in no acute distress. Right knee: Surgical wound healing well. Small region where the wound is open about 3-4 mm. With significant pressure there is small amount of clear drainage able to be extruded. Culture sample taken. No tenderness to palpation to the right knee. Patient is able to flex up to 115 today. Full extension today. No pain complaints. Allergies Coded Allergies: No Known Drug Allergy (Verified Allergy, Unknown, 10/17/16) Assessment/Plan * Wound culture obtained and sent to lab. * Keflex 500 mg 1 tab p.o. 3 times daily 7 days #21 tablets called into pharmacy. Patient may begin taking antibiotics immediately for infection prophylaxis. * Patient will follow up in 1 week for scheduled 6 week postop appointment. X- rays on follow-up. Should there be any concern especially with culture obtained today, patient will be notified sooner. * Follow-up next week for 6 week appointment and repeat wound check. Patient may apply thin film of Neosporin, after area has been cleaned and properly dried , with Band-Aid applied over Neosporin. Patient may follow-up sooner should there be any complication or issue. Medications Home Meds Reported Medications Aripiprazole* (Abilify*) 2 Mg Tablet, 2 MG PO DAILY, #30 TAB 10/16/16 Duloxetine Hcl* (Cymbalta*) 60 Mg Capsule.dr, 160 MG PO DAILY, CAP 10/16/16 Duloxetine Hcl* (Cymbalta*) 30 Mg Capsule.dr, 30 MG PO DAILY, CAP 10/16/16 Cranberry Extract (Cranberry Concentrate) 300 Mg Tablet, 3600 MG PO DAILY, TAB 09/05/15 Calcium Citrate/Vitamin D (Citracal-Vitamin D 200 MG-250) 1 Each Tablet, 1 EACH PO DAILY, TAB 09/05/15 Ascorbic Acid (Vitamin C) 500 Mg Tab, 500 MG PO DAILY, TAB 09/05/15 Atenolol* (Atenolol*) 25 Mg Tablet, DAILY 09/05/15 SHELLI BORJAS PA-C November 19, 2016 15:46
== END | disposition home or self-care (01) ==
LOC: HKI 15:17
DX: Z47.1 Aftercare following joint replacement surgery (principal); Z96.651 Presence of right artificial knee joint

== ENCOUNTER → 2016-11-21 | Outpatient (CLI) | payer BC ==
--- NOTE | 2016-11-22 03:51 | HKNOTE ---
DATE OF SERVICE: 11/21/2016 The patient is now 3 weeks out following total knee replacement. She has no pain in the knee. She has an excellent range of motion but there is a small, almost invisible, sinus in the junction of th e middle and distal thirds where there is drainage of what appears to be clear water coming from her knee. Cultures obtained on her on knee on 11/19/2016 are reported as showing pending culture for aerobic ba cteria. No organisms seen on Gram stain. PHYSICAL EXAMINATION: Patient's temperature is 98.5. It is fairly easy to express clear fluid from the knee. MANAGEMENT: A new culture is obtained today. I wanted to apply a wound VAC but none is available i n the office. The patient will have to come back tomorrow so we can put the wound VAC on the knee. She is currently on antibiotics. Dictated By: CORTEZ PINA/LAURA Conf#: [id number] DID#: [id number]
== END | disposition home or self-care (01) ==
LOC: HKI 13:40
DX: Z47.1 Aftercare following joint replacement surgery (principal); Z96.651 Presence of right artificial knee joint

== ENCOUNTER → 2016-11-26 | Outpatient (CLI) | payer BC ==
--- NOTE | 2016-11-26 15:30 | PN ---
Date/Time of Note Date/Time of Note DATE: 11/26/16 TIME: 15:24 Outpatient Progress Note Chief Complaint 6 week postop appointment for right total knee replacement HPI 61-year-old female presents today for 6 week postop appointment status post right total knee arthroplasty performed on 10/17/2016. Patient denies any pain complaints. Patient was seen about 4-5 days ago due to small opening of the skin to the inferior surgical wound. Since she was last seen, eschar has formed. There is no drainage. No pain complaints. Does have complaints of numbness along the lateral side of incision. Patient is walking normally and independently without assisted ambulatory device. No pain on ambulation. She states that she is returned to normal function of the knee. Review of Systems Const: No Fever, no chills, no Fatigue, normal appetite, no diaphoresis. Resp: No SOB, no wheezing, no chest pain. CV: No chest pain, no palpitaions, no BRADY. Physical Exam 123/82 as the blood pressure, temperature is 98.5, pulse is 79, respiratory rate is 12, height is 5 feet 5 inches, weight is 170 pounds. General Appearance: well-developed, well-nourished, in no acute distress. Right knee: Eschar formed over inferior surgical wound. No drainage. Surgical wound healing well. Numbness to light touch along the lateral side of surgical wound of the right knee. No tenderness to palpation. Patient has full range of motion on flexion and extension. 5/5 strength on resistance. No calf pain. Imaging X-ray of the right knee performed on 11/26/2016 showing all components appearing well aligned, attached and integrated to the bone. No signs of any lucency between metal and bone. Allergies Coded Allergies: No Known Drug Allergy (Verified Allergy, Unknown, 10/17/16) Assessment/Plan -Patient progressing well -Surgical wound continues to heal well. -No signs of infection or DVT on exam. -X-rays showing no abnormalities in regards to prosthesis attachment to bone. -Range of motion is improved status post total knee replacement. -Antibiotic prophylaxis card provided today. -Follow-up 6 months status post surgery. If patient is doing well at that time , possible follow-up on as-needed basis from that point. Dental prophylaxis discussed in detail today. Patient given prophylaxis card with antibiotic options. Should patient have allergy to specific medication ( eg penicillin) alternative options are also provided on the card. Patient is aware that antibiotics should be taken prior to any procedures to prevent increased risk of infection to the joint. Patient is aware that this will be for the rest of their life. Patient states understanding and compliance. Medications Home Meds Reported Medications Aripiprazole* (Abilify*) 2 Mg Tablet, 2 MG PO DAILY, #30 TAB 10/16/16 Duloxetine Hcl* (Cymbalta*) 60 Mg Capsule.dr, 160 MG PO DAILY, CAP 10/16/16 Duloxetine Hcl* (Cymbalta*) 30 Mg Capsule.dr, 30 MG PO DAILY, CAP 10/16/16 Cranberry Extract (Cranberry Concentrate) 300 Mg Tablet, 3600 MG PO DAILY, TAB 09/05/15 Calcium Citrate/Vitamin D (Citracal-Vitamin D 200 MG-250) 1 Each Tablet, 1 EACH PO DAILY, TAB 09/05/15 Ascorbic Acid (Vitamin C) 500 Mg Tab, 500 MG PO DAILY, TAB 09/05/15 Atenolol* (Atenolol*) 25 Mg Tablet, DAILY 09/05/15 SHLELI BORJAS PA-C November 26, 2016 15:30
--- NOTE | 2016-11-26 16:06 | RADRPT ---
PROCEDURE: Right knee radiographs. CLINICAL INDICATION: Right knee pain. Postop. TECHNIQUE: Three views. Weight bearing. Frontal, lateral, and patellar view. COMPARISON: 10/17/2016. FINDINGS: There is no fracture or dislocation. Anterior skin angelo and surgical drains have been removed. There is a total right knee arthroplasty which appears satisfactory. There is no lytic or blastic lesion. There is no joint effusion. IMPRESSION: 1. Satisfactory postoperative appearance of the right knee. RPTAT: QQ .Steve Montana MD, MD Date Time Electronically viewed and signed by .Steve Montana MD, MD on 11/26/2016 16:06 .R/
== END | disposition home or self-care (01) ==
LOC: HKI 13:39
DX: Z47.1 Aftercare following joint replacement surgery (principal); Z96.651 Presence of right artificial knee joint

== ENCOUNTER → 2017-04-01 | Outpatient (CLI) | payer BC ==
--- NOTE | 2017-04-01 13:54 | PN ---
Date/Time of Note Date/Time of Note DATE: 04/01/17 TIME: 13:50 Outpatient Progress Note Chief Complaint Six-month postoperative visit status post right total knee arthroplasty HPI 62-year-old female presents today for 6 month postoperative visit status post total knee arthroplasty on 10/17/2016. Patient continues to do well. She is up and walking and back to normal functionality. Denies any pain complaints to the right knee. Patient's only concern/complaint is after walking a couple of miles she has weakness to the right knee status post surgery. Denies any falls or injury. Denies any calf pain. Denies any chest pain/tightness. Review of Systems Const: No Fever, no chills, no Fatigue, normal appetite, no diaphoresis. Resp: No SOB, no wheezing, no chest pain. CV: No chest pain, no palpitaions, no BRADY. Physical Exam Blood pressure is 146/77, temperature is 98.1, pulse 67, respiratory rate is 14 , height is 5 foot 5 inches, weight is 174 pounds General Appearance: well-developed, well-nourished, in no acute distress. Right knee: Well-healed surgical scar to the anterior right knee. No tenderness to palpation. Gait is normal and nonantalgic. While lying supine, patient is able to perform straight leg raise and then flex the knee up to 129 as measured on goniometer. Full extension on examination. Negative Homans sign. Normal sensory examination to light touch. Imaging: X-ray of the Right knee performed on 04/01/2017 showing all components appearing well aligned, attached and integrated to the bone. No signs of any lucency between metal and bone. Allergies Coded Allergies: No Known Drug Allergy (Verified Allergy, Unknown, 10/17/16) Assessment/Plan Problems: (1) Status post right knee replacement * Continue daily activity as tolerated. Always to encourage home exercises. * Anti-inflammatories as needed for pain. * Continue with dental prophylaxis for the remainder of her life. * Follow-up as needed. Medications Home Meds Reported Medications Aripiprazole* (Abilify*) 2 Mg Tablet, 2 MG PO DAILY, #30 TAB 10/16/16 Duloxetine Hcl* (Cymbalta*) 60 Mg Capsule.dr, 160 MG PO DAILY, CAP 10/16/16 Duloxetine Hcl* (Cymbalta*) 30 Mg Capsule.dr, 30 MG PO DAILY, CAP 10/16/16 Cranberry Extract (Cranberry Concentrate) 300 Mg Tablet, 3600 MG PO DAILY, TAB 09/05/15 Calcium Citrate/Vitamin D (Citracal-Vitamin D 200 MG-250) 1 Each Tablet, 1 EACH PO DAILY, TAB 09/05/15 Ascorbic Acid (Vitamin C) 500 Mg Tab, 500 MG PO DAILY, TAB 09/05/15 Atenolol* (Atenolol*) 25 Mg Tablet, DAILY 09/05/15 SHELLI BORJAS PA-C Apr 01, 2017 13:54
--- NOTE | 2017-04-01 18:03 | RADRPT ---
PROCEDURE: Right knee radiographs. CLINICAL INDICATION: Right knee pain. Postop. TECHNIQUE: Three views. Weight bearing. Frontal, lateral, and patellar view. COMPARISON: 11/26/2016. FINDINGS: There is no fracture or dislocation. The soft tissues are normal. There is a total right knee arthroplasty which appears satisfactory. There is no lytic or blastic lesion. IMPRESSION: 1. Satisfactory postoperative appearance of the right knee. RPTAT: QQ .Steve Montana MD, MD Date Time Electronically viewed and signed by .Steve Montana MD, MD on 04/01/2017 18:02 .R/
== END | disposition home or self-care (01) ==
LOC: HKI 13:26
DX: Z47.89 Encounter for other orthopedic aftercare (principal); Z96.651 Presence of right artificial knee joint
CPT/HCPCS: 73562; G0463